=== PATIENT | male | born 1950 | race Caucasian/White ===

== ENCOUNTER → 2020-12-14 | Outpatient (CLI) | payer OTHER ==
[~2020-12-14] VITALS: Ht 185.4 cm; Wt 84.8 kg
[~2020-12-14] MED LIST: REGADENOSON 0.4 MG/5 ML DISP.SYRIN. IV ONE
--- NOTE | 2020-12-14 14:04 | RAD ---
MR#: [id number] Date of Study: 12/14/2020 Ordering Physician: YANI HURTADO Referring Physician: JAMES MCKEON Tech: PORFIRIO Gates APPROVED REPORT Test Type: Pharmacological Stress Nurse/Tech: Jonathan Gibson RN Test Indications: CHF Cardiac History: x-smoker Medications: See Electronic Medical Record Medical History: See Electronic Medical Record Resting ECG: SR Resting Heart Rate: 58 bpm Resting Blood Pressure: 131/71mmHg Pretest Chest Pain: None Nurse/Tech Notes Lungs CTA, S1S2 Consent: The procedure was explained to the patient in lay terms. Informed consent was witnessed. Russ eout was entered into [employer]. History and Stress Test performed by PORFIRIO Gates Pharm. Details Pharmacologic stress testing was performed using 0.4mg per 5ml of regadenoson given intravenously ove r 7-10 seconds. Stress Symptoms No chest pain or symptoms. POST EXERCISE Reason for Termination: Infusion complete Max HR: 58 bpm Max Blood Pressure: 135/60mmHg Blood Pressure response to exercise: Normal blood pressure response during stress. Heart Rate response to exercise: normal response Chest Pain: No. Arrhythmia: No. ST Change: No. INTERPRETATION Stress EKG Conclusion: The resting EKG shows a sinus rhythm with mild nonspecific T wave changes. The stress EKG shows no significant changes from baseline. No EKG evidence of stress-induced ischemia. Imaging Protocol IMAGE PROTOCOL: Rest Tc-99m/stress Tc-99m 1 day Rest: Stress: Viability: Radiopharm.Tc99m YdwqlhwsfRq70k Sestamibi Ldoz09rMr 32mCi Duration 15min. 13min. Img Date 12/14/2020 12/14/2020 Inj-Img Qeso86jec. 60min. Rest Admin Site:IV - Right AntecubitalAdministrator:PORFIRIO Gates Stress Admin Site: IV Right AntecubitalAdministrator: JHONNY Hanson, ARRT (R)(N) STRESS DATA End Diast. Vol.71.0mlLVEDV index BSA35.0ml End Syst. Vol.13.0mlLVESV index BSA6.0ml Myocardial Ilcr386.0gEject. Rtqalgyn87.0% Stress Scores Regional WT0.00Summed WT0.00 Regional WM0.00Summed WM1.00 LV Perfusion The stress scans show a mild inferior lateral defect. The rest scans show a mild inferior lateral defect. Nuclear imaging shows no reversible ischemia. Nuclear imaging shows a borderline fixed defect in the inferior lateral wall most suggestive of a sommer hnical artifact with normal LV wall function. Wall Motion Left ventricular systolic function is normal with no regional wall motion abnormalities and an ejecti on fraction of greater than 70%. LV Perf. Quant 17 Seg. SSS1.00 17 Seg. SRS4.00 17 Seg. SDS0.00 Stress Defect Extent (% LAD)0.00Rest Defect Extent (% LAD)0.00Rev. Defect Extent (% LAD)0.00 Stress Defect Extent (% LCX) 15.00Rest Defect Extent (% LCX)27.50Rev. Defect Extent (% LCX)2.50 Stress Defect Extent (% RCA)0.00Rest Defect Extent (% RCA)0.00Rev. Defect Extent (% RCA)0.00 Stress Defect Extent (% NAVARRO)3.90Rest Defect Extent (% NAVARRO)6.10Rev. Defect Extent (% NAVARRO)0.70 Conclusion 1. No EKG evidence of stress-induced ischemia. 2. Nuclear imaging shows no reversible ischemia. 3. Nuclear imaging shows a borderline fixed defect in the inferior lateral wall which is most suggest kedar of a technical artifact. 4. Left ventricular systolic function is normal with no regional wall motion abnormalities and an eje ction fraction of greater than 70%. 5. Moderately low risk Lexiscan nuclear stress test. Signed by : Turner Pelayo MD Electronically Approved : 12/14/2020 14:04:22
--- NOTE | 2020-12-14 17:16 | RAD ---
Bilateral lower extremity superficial venous duplex study 12/14/2020 CLINICAL HISTORY: Bilateral leg edema. TECHNIQUE: Using a combination real-time ultrasound imaging and color-flow and pulse Doppler imaging techniques, duplex evaluation of the greater and lesser saphenous veins of both lower extremities was performed. Multiple images were obtained. FINDINGS: The greater and lesser saphenous veins are patent bilaterally. The right greater saphenous vein measures 6.6 mm in diameter at its junction with the common femoral vein. It measures 4 mm proxi katya. The right lesser saphenous vein measures 2 mm proximally. The left greater saphenous vein sander ures 6.4 mm at its junction and 4.3 mm proximally. The left lesser saphenous vein measures 2.2 mm pro ximally. No venous reflux is noted. IMPRESSION: Negative study. Electronically signed by: Rod Kirkpatrick MD (12/14/2020 5:13 PM) [id number]
--- NOTE | 2020-12-14 18:00 | CARD ---
MR#: [id number] Date of Study: 12/14/2020 Ordering Physician: YANI HURTADO, Referring Physician: YANI HURTADO, Tech: Tavia Madsen, [facility] APPROVED REPORT EXAM: Two-dimensional and M-mode echocardiogram with Doppler and color Doppler. Other Information Quality : AverageHR: 55bpm INDICATION Congestive Heart Failure RISK FACTORS Hyperlipidemia 2D DIMENSIONS Left Atrium(2D)3.4 (1.6-4.0cm)IVSd0.9 (0.7-1.1cm) Aortic Root(2D)3.6 (2.0-3.7cm)LVDd5.4 (3.9-5.9cm) LVOT Diameter2.0 (1.8-2.4cm)PWd0.9 (0.7-1.1cm) LVDs3.6 (2.5-4.0cm)FS (%) 32.6 % SV85.1 mlLVEF(%)60.4 (>50%) Aortic Valve AoV Peak Kilo.126.4cm/sAoV VTI27.4cm AO Peak GR.6.4mmHgLVOT Peak Kilo.98.0cm/s LVOT VTI 22.40cmAO Mean GR.4mmHg GERMANIA (VMAX)1.26zu9GRG (VTI)2.55cm2 Mitral Valve MV E Povsdodo32.2cm/sMV DECEL [id number] MV A Ptsbtjxe26.7cm/sMV PYQ12uj E/A Ratio0.9MVA (PHT)3.31cm2 TDI E/Lateral E'5.5E/Medial E'6.7 Pulmonary Valve PV Peak Seyqhmny20.4cm/sPV Peak Grad.3mmHg Pulmonary Vein S1 Rbbgzfbd18.5cm/sD2 Bcesevhc02.2cm/s PVa [id number] LEFT VENTRICLE The left ventricle is normal size. There is normal left ventricular wall thickness. The left ventricu lar systolic function is normal and the ejection fraction is within normal range. The Ejection Fracti on is 50-55%. There is normal LV segmental wall motion. RIGHT VENTRICLE The right ventricle is normal size. The right ventricular systolic function is normal. ATRIA The left atrium size is normal. The right atrium size is normal. The interatrial septum is intact wit h no evidence for an atrial septal defect or patent foramen ovale as noted on 2-D or Doppler imaging. AORTIC VALVE The aortic valve is thickened but opens well. Doppler and Color Flow revealed trace aortic regurgitat ion. There is no significant aortic valvular stenosis. Calculated aortic valve area is 2.5 cm2 with m aximum pressure gradient of 8 mmHg and mean pressure gradient of 5 mmHg. MITRAL VALVE The mitral valve is normal in structure and function. There is no evidence of mitral valve prolapse. There is no mitral valve stenosis. Doppler and Color-flow revealed trace mitral regurgitation. TRICUSPID VALVE The tricuspid valve is normal in structure and function. Doppler and Color Flow revealed trace tricus pid regurgitation. There is no tricuspid valve stenosis. PULMONIC VALVE The pulmonic valve is not well visualized. Doppler and Color Flow revealed trace pulmonic valvular re gurgitation. GREAT VESSELS The aortic root is normal in size. The IVC is normal in size and collapses >50% with inspiration. PERICARDIAL EFFUSION There is no evidence of significant pericardial effusion. Critical Notification Critical Value: No <Conclusion> The left ventricle is normal size. The left ventricular systolic function is normal and the ejection fraction is within normal range. The Ejection Fraction is 50-55%. Doppler and Color Flow revealed trace aortic regurgitation. There is no significant aortic valvular stenosis. Doppler and Color-flow revealed trace mitral regurgitation. Doppler and Color Flow revealed trace tricuspid regurgitation. Signed by : Turner Pelayo MD Electronically Approved : 12/14/2020 18:00:08
== END ==
LOC: NM 08:47
PROVIDERS: ATTEND Internal Medicine Cardiovascular Disease
DX: I50.33 Acute on chronic diastolic (congestive) heart failure (principal); R60.0 Localized edema; Z87.891 Personal history of nicotine dependence
CPT/HCPCS: 78452; 93017; 93306; 93970; A9500; J2785